=== PATIENT | male | born 1950 | race Two or more races ===

== ENCOUNTER → 2016-10-26 | Outpatient (CLI) | payer MEDICARE, OTHER ==
[2016-10-26 08:50] LABS: Basophils # (auto) 0 uL; Basophils % (auto) 0.7 % (0.0-2.0); Eosinophils # (auto) 0.2 uL; Eosinophils % (auto) 3.6 % (0.0-7.0); Hematocrit 42.4 % (41.0-53.0); Hemoglobin 14.1 g/dL (13.5-17.5); Lymphocytes # (auto) 1.5 uL; Lymphocytes % (auto) 21.7 % (10.0-50.0); Mean Corpuscular Hemoglobin 28.4 pg (28.0-32.0); Mean Corpuscular Hgb Conc. 33.3 g/dL (32.0-36.0); Mean Corpuscular Volume 85.3 fL (80.0-100.0); Mean Platelet Volume 9.4 fL (7.4-10.4); Monocytes # (auto) 0.6 uL; Monocytes % (auto) 8.2 % (0.0-12.0); Neutrophils # (auto) 4.6 uL; Neutrophils % (auto) 65.8 % (37.0-80.0); Platelet Count (auto) 231 10^3/uL (140-450); Red Cell Distribution Width 15.4 % (11.6-16.0); White Blood Cell 6.9 10^3/uL (4.4-10.8)
[2016-10-26 09:00] LABS: Urine Bilirubin Negative (Negative); Urine Blood Negative /uL (Negative); Urine Color Yellow (Yellow); Urine Glucose Normal (Normal); Urine Ketone Negative (Negative); Urine Nitrite Negative (Negative); Urine RBC <1 /hpf (0 - 3); Urine pH 6.5 (5.0-8.0)
[2016-10-26 09:29] LABS: Vitamin B12 > 2000 pg/mL (211-911)
[2016-10-26 09:39] LABS: Temperature: 22.5 C (20.0-25.0)
[2016-10-26 09:53] LABS: Albumin 3.6 g/dL (3.4-5.0); BUN/Creatinine Ratio 18.3; Bilirubin, Total 0.8 mg/dL (0.2-1.0); Calcium 8.7 mg/dL (8.5-10.1); Potassium 4.5 mmol/L (3.5-5.1); Total Protein 7.7 g/dL (6.4-8.2)
== END | disposition home or self-care (01) ==
LOC: LAB 07:02
DX: E11.21 Type 2 diabetes mellitus with diabetic nephropathy (principal); D51.9 Vitamin B12 deficiency anemia, unspecified; E53.8 Deficiency of other specified B group vitamins; G62.9 Polyneuropathy, unspecified; E03.9 Hypothyroidism, unspecified; I10 Essential (primary) hypertension
CPT/HCPCS: 36415; 80053; 80061; 81001; 82607; 82746; 84153; 85025

== ENCOUNTER → 2017-01-03 | Outpatient (CLI) | payer MEDICARE, OTHER | END | disposition home or self-care (01) | LOC: LAB 09:29 | PROVIDERS: ATTEND Family Medicine | DX: E11.21 Type 2 diabetes mellitus with diabetic nephropathy (principal); D51.9 Vitamin B12 deficiency anemia, unspecified; E53.8 Deficiency of other specified B group vitamins; G62.9 Polyneuropathy, unspecified; E03.9 Hypothyroidism, unspecified; I10 Essential (primary) hypertension | CPT/HCPCS: 82270 ==

== ENCOUNTER → 2017-03-28 | Outpatient (CLI) | payer MEDICARE, OTHER ==
[2017-03-28 07:26] LABS: Urine RBC None Seen /hpf (0 - 3)
[2017-03-28 07:35] LABS: Urine Bilirubin Negative (Negative); Urine Blood Negative /uL (Negative); Urine Color Yellow (Yellow); Urine Glucose Normal (Normal); Urine Ketone Negative (Negative); Urine Nitrite POSITIVE (Negative); Urine Squamous Epithelial Cell FEW /hpf (<5); Urine Urobilinogen Normal (Negative)
[2017-03-28 07:39] LABS: Basophils # (auto) 0.1 uL; Eosinophils # (auto) 0.2 uL; Eosinophils % (auto) 1.7 % (0.0-7.0); Hematocrit 44.9 % (41.0-53.0); Hemoglobin 15.2 g/dL (13.5-17.5); Lymphocytes # (auto) 1.2 uL; Lymphocytes % (auto) 11.5 % (10.0-50.0); Mean Corpuscular Hemoglobin 29.4 pg (28.0-32.0); Mean Corpuscular Hgb Conc. 33.9 g/dL (32.0-36.0); Mean Corpuscular Volume 86.6 fL (80.0-100.0); Mean Platelet Volume 8.5 fL (6.9-10.8); Monocytes # (auto) 0.8 uL; Monocytes % (auto) 7.5 % (0.0-12.0); Neutrophils # (auto) 8.2 uL; Neutrophils % (auto) 78.3 % (37.0-80.0); Nucleated Red Blood Cells % 0.2 %; Platelet Count (auto) 220 10^3/uL (140-450); Red Cell Distribution Width 15.8 % (11.8-14.3); White Blood Cell 10.5 10^3/uL (4.4-10.8)
[2017-03-28 08:11] LABS: BUN/Creatinine Ratio 19.2; Calcium 9.1 mg/dL (8.5-10.1); Potassium 4.3 mmol/L (3.5-5.1); Total Protein 8.3 g/dL (6.4-8.2)
[2017-03-28 09:15] LABS: Temperature: 22.4 C (20.0-25.0)
== END | disposition home or self-care (01) ==
LOC: LAB 07:11
PROVIDERS: ATTEND Family Medicine
DX: E11.21 Type 2 diabetes mellitus with diabetic nephropathy (principal); I10 Essential (primary) hypertension; D51.9 Vitamin B12 deficiency anemia, unspecified
CPT/HCPCS: 36415; 80053; 80061; 81001; 82043; 82607; 82746; 83036; 84443; 85025

== ENCOUNTER → 2017-09-08 | Outpatient (CLI) | payer MEDICARE, OTHER ==
[2017-09-08 07:53] LABS: BUN/Creatinine Ratio 18.5; Calcium 8.9 mg/dL (8.5-10.1); Potassium 4.4 mmol/L (3.5-5.1)
== END | disposition home or self-care (01) ==
LOC: LAB 07:12
PROVIDERS: ATTEND Family Medicine
DX: E21.0 Primary hyperparathyroidism (principal); I10 Essential (primary) hypertension; E11.9 Type 2 diabetes mellitus without complications
CPT/HCPCS: 36415; 80048; 80061; 83036

== ENCOUNTER → 2017-11-21 | Outpatient (CLI) | payer MEDICARE, OTHER ==
[2017-11-21 09:04] LABS: Folate (Folic Acid) 14.38 ng/mL (5.38-24)
[2017-11-21 09:06] LABS: Albumin 3.9 g/dL (3.4-5.0); BUN/Creatinine Ratio 21.4; Potassium 5.2 mmol/L (3.5-5.1)
[2017-11-21 09:09] LABS: Bilirubin, Total 0.7 mg/dL (0.2-1.0); Total Protein 8.4 g/dL (6.4-8.2)
== END | disposition home or self-care (01) ==
LOC: LAB 07:29
PROVIDERS: ATTEND Nurse Practitioner
DX: D51.9 Vitamin B12 deficiency anemia, unspecified (principal); I10 Essential (primary) hypertension; E11.9 Type 2 diabetes mellitus without complications; Z79.899 Other long term (current) drug therapy
CPT/HCPCS: 36415; 80053; 82306; 82607; 82746; 83540

== ENCOUNTER → 2018-08-25 | Outpatient (CLI) | payer MEDICARE, OTHER ==
[2018-08-25 08:20] LABS: Basophils # (auto) 0.1 uL; Hematocrit 43.2 % (41.0-53.0); Neutrophils % (auto) 68.8 % (37.0-80.0); Red Blood Cells 5.34 10^6/uL (4.5-5.90); Urine Bacteria FEW /hpf (None Seen); Urine Blood Negative /uL (Negative); Urine Specific Gravity 1.013 (1.001-1.035); Urine WBC <1 /hpf (0 - 3)
[2018-08-25 08:23] LABS: Basophils % (auto) 0.8 % (0.0-2.0); Eosinophils # (auto) 0.3 uL; Eosinophils % (auto) 4.2 % (0.0-7.0); Lymphocytes # (auto) 1.4 uL; Lymphocytes % (auto) 17.4 % (10.0-50.0); Mean Corpuscular Hemoglobin 26.2 pg (28.0-32.0); Mean Corpuscular Hgb Conc. 32.5 g/dL (32.0-36.0); Mean Corpuscular Volume 80.8 fL (80.0-100.0); Monocytes # (auto) 0.7 uL; Monocytes % (auto) 8.8 % (0.0-12.0); Neutrophils # (auto) 5.4 uL; Platelet Count (auto) 214 10^3/uL (140-450); Red Cell Distribution Width 17.2 % (11.8-14.3); White Blood Cell 7.8 10^3/uL (4.4-10.8)
[2018-08-25 08:51] LABS: Albumin 3.6 g/dL (3.4-5.0); BUN/Creatinine Ratio 21.9; Bilirubin, Total 0.6 mg/dL (0.2-1.0); Calcium 8.7 mg/dL (8.5-10.1); Total Protein 7.7 g/dL (6.4-8.2)
== END | disposition home or self-care (01) ==
LOC: LAB 07:14
PROVIDERS: ATTEND Nurse Practitioner
DX: E11.9 Type 2 diabetes mellitus without complications (principal); E78.5 Hyperlipidemia, unspecified; E55.9 Vitamin D deficiency, unspecified
CPT/HCPCS: 36415; 80053; 80061; 81001; 82306; 82607; 83036; 85025

== ENCOUNTER → 2018-11-13 | Outpatient (CLI) | payer MEDICARE, OTHER ==
[2018-11-13 10:23] LABS: Albumin 3.8 g/dL (3.4-5.0); BUN/Creatinine Ratio 18.1; Bilirubin, Total 0.6 mg/dL (0.2-1.0); Calcium 8.8 mg/dL (8.5-10.1); Total Protein 7.6 g/dL (6.4-8.2)
== END | disposition home or self-care (01) ==
LOC: LAB 08:43
PROVIDERS: ATTEND Nurse Practitioner
DX: E11.22 Type 2 diabetes mellitus with diabetic chronic kidney disease (principal); I12.9 Hypertensive chronic kidney disease with stage 1 through stage 4 chronic kidney disease, or unspecified chronic kidney disease; N18.3 Chronic kidney disease, stage 3 (moderate)
CPT/HCPCS: 36415; 80053

== ENCOUNTER → 2019-01-05 | Outpatient (CLI) | payer MEDICARE, OTHER ==
[2019-01-05 08:07] LABS: Basophils # (auto) 0.1 uL; Eosinophils # (auto) 0.2 uL; Hemoglobin 14.6 g/dL (13.5-17.5); Lymphocytes # (auto) 1.7 uL; Monocytes # (auto) 0.7 uL
[2019-01-05 08:09] LABS: Eosinophils % (auto) 2.1 % (0.0-7.0); Hematocrit 45.6 % (41.0-53.0); Mean Corpuscular Hemoglobin 25.9 pg (28.0-32.0); Mean Corpuscular Volume 80.8 fL (80.0-100.0); Monocytes % (auto) 7.7 % (0.0-12.0); Neutrophils # (auto) 6.9 uL; Neutrophils % (auto) 71.2 % (37.0-80.0); Nucleated Red Blood Cells % 0.2 %; Platelet Count (auto) 251 10^3/uL (140-450); Red Blood Cells 5.65 10^6/uL (4.5-5.90); Red Cell Distribution Width 18.5 % (11.8-14.3); White Blood Cell 9.7 10^3/uL (4.4-10.8)
[2019-01-05 08:16] LABS: BUN/Creatinine Ratio 20.2; Potassium 4.4 mmol/L (3.5-5.1)
[2019-01-05 09:31] LABS: Urine Bacteria NONE SEEN /hpf (None Seen); Urine Blood Negative /uL (Negative); Urine Specific Gravity 1.014 (1.001-1.035); Urine WBC 4 /hpf (0 - 3)
== END | disposition home or self-care (01) ==
LOC: LAB 07:07
PROVIDERS: ATTEND Nurse Practitioner
DX: E78.5 Hyperlipidemia, unspecified (principal); E11.21 Type 2 diabetes mellitus with diabetic nephropathy; E11.22 Type 2 diabetes mellitus with diabetic chronic kidney disease; N18.4 Chronic kidney disease, stage 4 (severe)
CPT/HCPCS: 36415; 80048; 81001; 85025

== ENCOUNTER → 2019-03-07 | Outpatient (CLI) | payer MEDICARE, OTHER ==
[2019-03-07 07:27] LABS: Urine Bacteria NONE SEEN /hpf (None Seen); Urine Blood Negative /uL (Negative); Urine Specific Gravity 1.011 (1.001-1.035); Urine WBC 1 /hpf (0 - 3)
[2019-03-07 07:29] LABS: Basophils # (auto) 0.1 uL; Eosinophils # (auto) 0.3 uL; Hemoglobin 14.5 g/dL (13.5-17.5); Lymphocytes # (auto) 1.6 uL; Mean Corpuscular Volume 81.1 fL (80.0-100.0); Monocytes # (auto) 0.7 uL; Neutrophils # (auto) 5.6 uL; White Blood Cell 8.3 10^3/uL (4.4-10.8)
[2019-03-07 07:31] LABS: Basophils % (auto) 1.1 % (0.0-2.0); Eosinophils % (auto) 3.1 % (0.0-7.0); Hematocrit 43.5 % (41.0-53.0); Lymphocytes % (auto) 19.8 % (10.0-50.0); Mean Corpuscular Hemoglobin 27.1 pg (28.0-32.0); Mean Corpuscular Hgb Conc. 33.4 g/dL (32.0-36.0); Monocytes % (auto) 8.5 % (0.0-12.0); Neutrophils % (auto) 67.5 % (37.0-80.0); Platelet Count (auto) 217 10^3/uL (140-450); Red Blood Cells 5.36 10^6/uL (4.5-5.90)
[2019-03-07 07:48] LABS: Albumin 3.7 g/dL (3.4-5.0); Calcium 8.8 mg/dL (8.5-10.1); Potassium 4.7 mmol/L (3.5-5.1)
[2019-03-07 07:51] LABS: BUN/Creatinine Ratio 20.4
[2019-03-07 07:53] LABS: Bilirubin, Total 0.6 mg/dL (0.2-1.0); Total Protein 7.6 g/dL (6.4-8.2)
== END | disposition home or self-care (01) ==
LOC: LAB 07:04
PROVIDERS: ATTEND Nurse Practitioner
DX: E78.5 Hyperlipidemia, unspecified (principal); E11.9 Type 2 diabetes mellitus without complications; I10 Essential (primary) hypertension
CPT/HCPCS: 36415; 80053; 80061; 81001; 82043; 83036; 84443; 85025